=== PATIENT | male | born 1935 | race Caucasian/White ===

== ENCOUNTER 2016-08-28 15:52 | Inpatient (IN) | payer MEDICARE, MEDICAID ==
[~2016-08-28] VITALS: Ht 172.7 cm; Wt 83.9 kg
[~2016-08-28 15:52] MED LIST: ACET650T10 PO; ASPI81TA31 PO; ATOR20TA PO; BENA10TA2 PO; BISA10SU15 RC; DOCU100C22 PO; DONE5TAB34 PO; FINA5TAB11 PO; GABA-532 PO; LORA10TA50 PO; MAGN400O4 PO; MECL12.582 PO; METO-302 PO; MOME17SP NS; MONT10TA22 PO; OXYB5TAB11 PO; POLY510P31 PO; RANI150C4 PO; RASA0.5T PO; SENN8.6T6 PO; SIME80TA15 PO; TRAM50TA2 PO
[2016-08-28] MEDS ORDERED: NA P133E RC (16:20)
[2016-08-28] MEDS ORDERED: LIDO700A TP (16:20)
[2016-08-28] MEDS ORDERED: MELA5TAB PO (16:20)
[2016-08-28] MEDS ORDERED: SIME80TA14 PO (16:20)
[2016-08-28] MEDS ORDERED: ALBU8.5H2 IH (16:20)
[2016-08-28] MEDS ORDERED: TRAM50TA2 PO (16:20)
[2016-08-28] MEDS ORDERED: IBUP-66 PO (16:20)
[2016-08-28 16:24] LABS: BASOPHILS # (AUTO) 0.1 K/uL (0.0-0.2); BASOPHILS % (AUTO) 1.4 % (0.0-2.0); EOSINOPHILS # (AUTO) 0.2 K/uL (0.0-0.7); EOSINOPHILS % (AUTO) 2.5 % (0.0-7.0); HEMATOCRIT 46.2 % (40.0-50.0); HEMOGLOBIN 14.9 g/dL (14.0-18.0); LYMPHOCYTES # (AUTO) 0.9 K/uL (0.8-4.8); MEAN CORPUSCULAR HEMOGLOBIN 25.6 uug (27.0-31.0); MEAN CORPUSCULAR HGB CONC 32 g/dL (32.0-37.0); MEAN CORPUSCULAR VOLUME 79.5 fL (82.0-92.0); MONOCYTES # (AUTO) 0.3 K/uL (0.1-1.30); MONOCYTES % (AUTO) 3.1 % (0.0-11.0); NEUTROPHILS # (AUTO) 7.7 K/uL (1.8-8.9); PLATELET COUNT (AUTO) 211 K/uL (150-450); RED BLOOD CELL COUNT(AUTO) 5.81 MIL/uL (4.70-6.10); RED CELL DISTRIBUTION WIDTH 13.4 % (11.5-14.5); WHITE BLOOD COUNT (AUTO) 9.2 K/uL (4.0-11.2)
[2016-08-28 16:44] LABS: CARBON DIOXIDE 30 mmol/L (21-32); CHLORIDE 99 mmol/L (98-107); CREATININE 1.4 mg/dL (0.6-1.3); GLUCOSE 155 mg/dL (74-106); POTASSIUM 4.8 mmol/L (3.5-5.1); SODIUM SERUM 135 mmol/L (136-145); UREA NITROGEN, BLOOD 26 mg/dL (7-18)
[2016-08-28 16:46] LABS: AMMONIA 15 umol/L (11-32)
[2016-08-28 16:51] LABS: TROPONIN I < 0.017 ng/mL (0.00-0.056)
[2016-08-28 16:52] LABS: LACTIC ACID 1.4 mmol/L (0.4-2.0)
[2016-08-28 17:03] LABS: *BILIRUBIN,URIN NEGATIVE (NEGATIVE); *BLOOD, URINE NEGATIVE (NEGATIVE); *CLARITY,URINE CLEAR (CLEAR); *COLOR,URINE YELLOW (YELLOW); *KETONES,URINE NEGATIVE (NEGATIVE); *PROTEIN,URINE NEGATIVE (NEGATIVE); *UROBILINOGEN,URINE 0.2 E.U./dl (NORMAL); LEUKOCYTE ESTERASE ,URINE NEGATIVE (NEGATIVE); NITRITE, URINE NEGATIVE (NEGATIVE); UGLUCOSE NEGATIVE (NEGATIVE)
[2016-08-28 17:03] LABS: ALANINE AMINOTRANSFERASE 25 U/L (16-63); ALBUMIN 3.8 g/dL (3.4-5.0); ALKALINE PHOSPHATASE 80 U/L (50-136); ASPARTATE AMINOTRANSFERASE 12 U/L (15-37); BILIRUBIN,DIRECT 0.1 mg/dL (0.0-0.2); BILIRUBIN,TOTAL 0.3 mg/dL (0.2-1.0); TOTAL PROTEIN, SERUM 7.2 g/dL (6.4-8.2)
[2016-08-28 17:04] LABS: *AMPHETAMINE, URINE NEGATIVE (NEGATIVE); *BARBITURATE, URINE NEGATIVE (NEGATIVE); *CANNABINOID, URINE NEGATIVE (NEGATIVE); *COCCAINE, URINE NEGATIVE (NEGATIVE); *OPIATE, URINE NEGATIVE (NEGATIVE); *PHENCYCLIDINE SCREEN,URINE NEGATIVE (NEGATIVE)
[2016-08-28 17:06] LABS: ACETAMINOPHEN < 2.0 ug/mL (10-30)
[2016-08-28 17:18] LABS: ETHANOL < 3 MG/DL (0-0)
[2016-08-28 17:18] LABS: BACTERIA,URINE NONE SEEN /HPF (NONE SEEN); RBC,URINE 0-3 /HPF (0-3); SQUAMOUS EPITHELIAL CELL,UR NONE SEEN /HPF (NONE SEEN); WBC,URINE 0-3 /HPF (0-3)
[2016-08-28 17:30] VITALS: BP 142/77
[2016-08-28 17:30] LABS: THYROID STIMULATING HORMONE 0.791 mIU/mL (0.358-3.740)
[2016-08-28] MEDS ORDERED: ACETAMINOPHEN 325 MG TABLET PO PRN (17:30)
[2016-08-28] MEDS ORDERED: MAGNESIUM HYDROXIDE 30 ML LIQUID UDC PO PRN (17:30)
[2016-08-28] MEDS ORDERED: LORAZEPAM 0.5 MG TABLET PO PRN (17:45)
[2016-08-28] MEDS ORDERED: TEMAZEPAM 7.5 MG CAPSULE PO PRN (17:45)
[2016-08-28] MEDS ORDERED: ALBUTEROL SULFATE 8 GM HFA.AER.AD IH PRN (18:45)
[2016-08-28] MEDS ORDERED: TRAMADOL HCL 50 MG TABLET PO PRN (18:45)
[2016-08-28] MEDS ORDERED: FLEET ENEMA 133 ML BOTTLE RC PRN (18:45)
[2016-08-28] MEDS ORDERED: MOMETASONE FUROATE NASAL 17 GM SPRAY.PUMP NS PRN (18:45)
[2016-08-28] MEDS ORDERED: LIDOCAINE 5% PATCH TD PRN (18:45)
[2016-08-28] MEDS ORDERED: IBUPROFEN 200 MG TABLET PO PRN (18:45)
[2016-08-28] MEDS ORDERED: SIMETHICONE 80 MG TAB.CHEW PO PRN (18:45)
[2016-08-28] MEDS ORDERED: BISACODYL 10 MG SUPP.RECT RC PRN (18:45)
[2016-08-28] MEDS ORDERED: OLANZAPINE 10 MG VIAL IM ONE (19:00)
[2016-08-28] MEDS ORDERED: LORAZEPAM 2 MG/1 ML VIAL IM ONE ×2 (19:15)
[2016-08-28] MEDS ORDERED: HALOPERIDOL LACTATE 5 MG/1 ML VIAL IM ONE (19:15)
[2016-08-28] MEDS ORDERED: BENZTROPINE MESYLATE 2 MG/2 ML AMPUL IM ONE (19:15)
[2016-08-28] MEDS ORDERED: ALBUTEROL SULFATE 2.5 MG/3 ML NEBU NEB PRN (19:30)
[2016-08-28] MEDS: LORATADINE 10 MG TABLET PO SCH (20:00)
[2016-08-28] MEDS: GABAPENTIN 100 MG CAPSULE PO SCH (21:00)
[2016-08-28] MEDS: ATORVASTATIN 20 MG TABLET PO SCH (21:00)
[2016-08-28 21:31] VITALS: BP 128/57
[2016-08-29 07:30] VITALS: BP 152/69
[2016-08-29] MEDS ORDERED: RASAGILINE MESYLATE 0.5 MG PO SCH (09:00)
[2016-08-29] MEDS: FINASTERIDE 5 MG TABLET PO SCH (09:28)
[2016-08-29] MEDS: ASPIRIN 81 MG TAB.CHEW PO SCH (09:28)
[2016-08-29] MEDS: FAMOTIDINE 20 MG TABLET PO SCH (09:29)
[2016-08-29] MEDS: METOPROLOL SUCCINATE XL 25 MG TAB.SR.24H PO SCH (09:29)
[2016-08-29] MEDS: OXYBUTYNIN CHLORIDE 5 MG TABLET PO SCH (09:29)
[2016-08-29] MEDS: BENAZEPRIL HCL 10 MG TABLET PO SCH (09:30)
[2016-08-29 16:48] VITALS: BP 120/73
[2016-08-29] MEDS ORDERED: DIVALPROEX 125 MG TABLET.DR PO SCH (17:30)
[2016-08-29] MEDS: DIVALPROEX 125 MG TABLET.DR PO SCH (17:48)
[2016-08-29] MEDS ORDERED: PNEUMOCOCCAL 23-VAL P-SAC VAC 0.5 ML VIAL IM ONE (18:30)
[2016-08-29] MEDS: MAG HYDROX/AL HYDROX/SIMETH 30 ML LIQUID UDC PO PRN (19:23)
[2016-08-29] MEDS: ATORVASTATIN 20 MG TABLET PO SCH (20:04)
[2016-08-29] MEDS: LORATADINE 10 MG TABLET PO SCH (20:04)
[2016-08-29] MEDS: QUETIAPINE FUMARATE 25 MG TABLET PO SCH (20:04)
[2016-08-29] MEDS: GABAPENTIN 100 MG CAPSULE PO SCH (20:04)
[2016-08-29 20:13] VITALS: BP 134/71
[2016-08-29] MEDS: RASAGILINE 0.5 MG PO SCH (20:54)
[2016-08-30 07:30] VITALS: BP 141/63
[2016-08-30] MEDS: OXYBUTYNIN CHLORIDE 5 MG TABLET PO SCH (08:09)
[2016-08-30] MEDS: ASPIRIN 81 MG TAB.CHEW PO SCH (08:09)
[2016-08-30] MEDS: BENAZEPRIL HCL 10 MG TABLET PO SCH (08:09)
[2016-08-30] MEDS: FINASTERIDE 5 MG TABLET PO SCH (08:09)
[2016-08-30] MEDS: FAMOTIDINE 20 MG TABLET PO SCH (08:09)
[2016-08-30] MEDS: DIVALPROEX 125 MG TABLET.DR PO SCH ×2 (08:09→17:01)
[2016-08-30] MEDS: METOPROLOL SUCCINATE XL 25 MG TAB.SR.24H PO SCH (08:09)
[2016-08-30] MEDS: RASAGILINE 0.5 MG PO SCH ×2 (08:10→17:01)
[2016-08-30 16:21] VITALS: BP 142/65
[2016-08-30 20:00] VITALS: BP 108/50
[2016-08-30] MEDS: ATORVASTATIN 20 MG TABLET PO SCH (20:39)
[2016-08-30] MEDS: GABAPENTIN 100 MG CAPSULE PO SCH (20:39)
[2016-08-30] MEDS: LORATADINE 10 MG TABLET PO SCH (20:40)
[2016-08-30] MEDS: QUETIAPINE FUMARATE 25 MG TABLET PO SCH (20:40)
[2016-08-31 06:59] LABS: ALBUMIN 3.6 g/dL (3.4-5.0); BILIRUBIN,TOTAL 0.7 mg/dL (0.2-1.0); CALCIUM 9.3 mg/dL (8.5-10.1); CREATININE 1.4 mg/dL (0.6-1.3); MAGNESIUM 2.2 mg/dL (1.8-2.4); PHOSPHOROUS 3.4 mg/dL (2.5-4.9); POTASSIUM 4.8 mmol/L (3.5-5.1); TOTAL PROTEIN, SERUM 7.4 g/dL (6.4-8.2)
[2016-08-31 07:14] LABS: BASOPHILS % (AUTO) 0.2 % (0.0-2.0); EOSINOPHILS # (AUTO) 0.3 K/uL (0.0-0.7); HEMATOCRIT 45.7 % (40.0-50.0); HEMOGLOBIN 15.1 g/dL (14.0-18.0); LYMPHOCYTES # (AUTO) 1.1 K/uL (0.8-4.8); MEAN CORPUSCULAR HEMOGLOBIN 26.2 uug (27.0-31.0); MEAN CORPUSCULAR HGB CONC 33 g/dL (32.0-37.0); MEAN CORPUSCULAR VOLUME 79.2 fL (82.0-92.0); MONOCYTES # (AUTO) 0.4 K/uL (0.1-1.30); MONOCYTES % (AUTO) 3.4 % (0.0-11.0); NEUTROPHILS # (AUTO) 8.5 K/uL (1.8-8.9); NEUTROPHILS % (AUTO) 82.4 % (38.5-71.5); PLATELET COUNT (AUTO) 191 K/uL (150-450); RED BLOOD CELL COUNT(AUTO) 5.78 MIL/uL (4.70-6.10); RED CELL DISTRIBUTION WIDTH 13.8 % (11.5-14.5); WHITE BLOOD COUNT (AUTO) 10.3 K/uL (4.0-11.2)
[2016-08-31 07:30] VITALS: BP 133/70
[2016-08-31] MEDS: ASPIRIN 81 MG TAB.CHEW PO SCH (08:06)
[2016-08-31] MEDS: FINASTERIDE 5 MG TABLET PO SCH (08:06)
[2016-08-31] MEDS: DIVALPROEX 125 MG TABLET.DR PO SCH ×2 (08:06→17:10)
[2016-08-31] MEDS: FAMOTIDINE 20 MG TABLET PO SCH (08:06)
[2016-08-31] MEDS: METOPROLOL SUCCINATE XL 25 MG TAB.SR.24H PO SCH (08:07)
[2016-08-31] MEDS: OXYBUTYNIN CHLORIDE 5 MG TABLET PO SCH (08:07)
[2016-08-31] MEDS: BENAZEPRIL HCL 10 MG TABLET PO SCH (08:07)
[2016-08-31] MEDS: RASAGILINE 0.5 MG PO SCH ×2 (08:09→17:10)
[2016-08-31 14:11] LABS: *BILIRUBIN,URIN NEGATIVE (NEGATIVE); *BLOOD, URINE NEGATIVE (NEGATIVE); *CLARITY,URINE CLEAR (CLEAR); *COLOR,URINE YELLOW (YELLOW); *KETONES,URINE NEGATIVE (NEGATIVE); *PROTEIN,URINE NEGATIVE (NEGATIVE); *UROBILINOGEN,URINE 0.2 E.U./dl (NORMAL); LEUKOCYTE ESTERASE ,URINE NEGATIVE (NEGATIVE); NITRITE, URINE NEGATIVE (NEGATIVE); PH,URINE 5.5 (5.0-8.0); UGLUCOSE NEGATIVE (NEGATIVE)
[2016-08-31 14:20] LABS: BACTERIA,URINE NONE SEEN /HPF (NONE SEEN); RBC,URINE 0-3 /HPF (0-3); SQUAMOUS EPITHELIAL CELL,UR FEW /HPF (NONE SEEN); WBC,URINE 0-3 /HPF (0-3)
[2016-08-31 14:29] LABS: *URINE TOTAL PROTEIN RANDOM 12.9 mg/dL (<150/24HR)
[2016-08-31 16:00] VITALS: BP 108/57
[2016-08-31] MEDS: MAG HYDROX/AL HYDROX/SIMETH 30 ML LIQUID UDC PO PRN (18:44)
[2016-08-31 19:57] VITALS: BP 141/67
[2016-08-31] MEDS: LORATADINE 10 MG TABLET PO SCH (20:07)
[2016-08-31] MEDS: ATORVASTATIN 20 MG TABLET PO SCH (20:07)
[2016-08-31] MEDS: QUETIAPINE FUMARATE 25 MG TABLET PO SCH (20:07)
[2016-08-31] MEDS: GABAPENTIN 100 MG CAPSULE PO SCH (20:08)
[2016-09-01 07:30] VITALS: BP 134/70
[2016-09-01] MEDS: METOPROLOL SUCCINATE XL 25 MG TAB.SR.24H PO SCH (08:40)
[2016-09-01] MEDS: FINASTERIDE 5 MG TABLET PO SCH (08:40)
[2016-09-01] MEDS: DIVALPROEX 125 MG TABLET.DR PO SCH ×2 (08:41→17:44)
[2016-09-01] MEDS: ASPIRIN 81 MG TAB.CHEW PO SCH (08:41)
[2016-09-01] MEDS: OXYBUTYNIN CHLORIDE 5 MG TABLET PO SCH (08:41)
[2016-09-01] MEDS: FAMOTIDINE 20 MG TABLET PO SCH (08:41)
[2016-09-01] MEDS: BENAZEPRIL HCL 10 MG TABLET PO SCH (08:41)
[2016-09-01] MEDS: RASAGILINE 0.5 MG PO SCH ×2 (10:43→17:45)
[2016-09-01 15:17] VITALS: BP 143/69
[2016-09-01] MEDS: MAG HYDROX/AL HYDROX/SIMETH 30 ML LIQUID UDC PO PRN (18:27)
[2016-09-01] MEDS: QUETIAPINE FUMARATE 25 MG TABLET PO SCH (20:56)
[2016-09-01] MEDS: ATORVASTATIN 20 MG TABLET PO SCH (20:56)
[2016-09-01] MEDS: GABAPENTIN 100 MG CAPSULE PO SCH (20:56)
[2016-09-01] MEDS: LORATADINE 10 MG TABLET PO SCH (21:03)
[2016-09-01 22:26] VITALS: BP 132/75
[2016-09-02 03:13] LABS: *CREATININE,URINE 49.1 mg/dL (30-125); *SODIUM RNDM,URINE 32 mmol/L (40-220)
[2016-09-02 03:14] LABS: *URINE TOTAL PROTEIN RANDOM < 6.0 mg/dL (<150/24HR)
[2016-09-02 03:15] LABS: *BILIRUBIN,URIN NEGATIVE (NEGATIVE); *BLOOD, URINE NEGATIVE (NEGATIVE); *CLARITY,URINE CLEAR (CLEAR); *COLOR,URINE YELLOW (YELLOW); *KETONES,URINE NEGATIVE (NEGATIVE); *PROTEIN,URINE NEGATIVE (NEGATIVE); *UROBILINOGEN,URINE 0.2 E.U./dl (NORMAL); LEUKOCYTE ESTERASE ,URINE NEGATIVE (NEGATIVE); NITRITE, URINE NEGATIVE (NEGATIVE); UGLUCOSE NEGATIVE (NEGATIVE)
[2016-09-02 03:25] LABS: BACTERIA,URINE NONE SEEN /HPF (NONE SEEN); RBC,URINE 0-3 /HPF (0-3); SQUAMOUS EPITHELIAL CELL,UR NONE SEEN /HPF (NONE SEEN); WBC,URINE 0-3 /HPF (0-3)
[2016-09-02 07:30] VITALS: BP 151/80
[2016-09-02] MEDS: DIVALPROEX 125 MG TABLET.DR PO SCH ×2 (08:26→17:20)
[2016-09-02] MEDS: BENAZEPRIL HCL 10 MG TABLET PO SCH (08:27)
[2016-09-02] MEDS: OXYBUTYNIN CHLORIDE 5 MG TABLET PO SCH (08:28)
[2016-09-02] MEDS: ASPIRIN 81 MG TAB.CHEW PO SCH (08:28)
[2016-09-02] MEDS: FAMOTIDINE 20 MG TABLET PO SCH (08:28)
[2016-09-02] MEDS: METOPROLOL SUCCINATE XL 25 MG TAB.SR.24H PO SCH (08:28)
[2016-09-02] MEDS: FINASTERIDE 5 MG TABLET PO SCH (08:28)
[2016-09-02] MEDS: RASAGILINE 0.5 MG PO SCH ×2 (08:36→17:19)
[2016-09-02 15:56] VITALS: BP 142/66
[2016-09-02 20:00] VITALS: BP 135/68
[2016-09-02] MEDS: ATORVASTATIN 20 MG TABLET PO SCH (20:08)
[2016-09-02] MEDS: QUETIAPINE FUMARATE 25 MG TABLET PO SCH (20:09)
[2016-09-02] MEDS: LORATADINE 10 MG TABLET PO SCH (20:09)
[2016-09-02] MEDS: GABAPENTIN 100 MG CAPSULE PO SCH (20:09)
[2016-09-03 07:30] VITALS: BP 141/73
[2016-09-03] MEDS: FINASTERIDE 5 MG TABLET PO SCH (08:46)
[2016-09-03] MEDS: FAMOTIDINE 20 MG TABLET PO SCH (08:46)
[2016-09-03] MEDS: BENAZEPRIL HCL 10 MG TABLET PO SCH (08:46)
[2016-09-03] MEDS: DIVALPROEX 125 MG TABLET.DR PO SCH ×2 (08:46→17:12)
[2016-09-03] MEDS: OXYBUTYNIN CHLORIDE 5 MG TABLET PO SCH (08:46)
[2016-09-03] MEDS: ASPIRIN 81 MG TAB.CHEW PO SCH (08:46)
[2016-09-03] MEDS: METOPROLOL SUCCINATE XL 25 MG TAB.SR.24H PO SCH (08:47)
[2016-09-03] MEDS: RASAGILINE 0.5 MG PO SCH ×2 (08:49→17:12)
[2016-09-03 15:45] VITALS: BP 125/59
[2016-09-03] MEDS: MAG HYDROX/AL HYDROX/SIMETH 30 ML LIQUID UDC PO PRN (18:36)
[2016-09-03] MEDS: GABAPENTIN 100 MG CAPSULE PO SCH (20:15)
[2016-09-03] MEDS: LORATADINE 10 MG TABLET PO SCH (20:16)
[2016-09-03] MEDS: ATORVASTATIN 20 MG TABLET PO SCH (20:16)
[2016-09-03] MEDS: QUETIAPINE FUMARATE 25 MG TABLET PO SCH (20:16)
[2016-09-03 21:00] VITALS: BP 135/60
[2016-09-04 07:05] LABS: CALCIUM 9.5 mg/dL (8.5-10.1); MAGNESIUM 2.2 mg/dL (1.8-2.4); PHOSPHOROUS 3.2 mg/dL (2.5-4.9); POTASSIUM 5.1 mmol/L (3.5-5.1)
[2016-09-04 07:06] LABS: CREATININE 1.4 mg/dL (0.6-1.3)
[2016-09-04 07:28] LABS: BASOPHILS % (AUTO) 0.3 % (0.0-2.0); EOSINOPHILS # (AUTO) 0.5 K/uL (0.0-0.7); EOSINOPHILS % (AUTO) 7.2 % (0.0-7.0); HEMATOCRIT 45.5 % (36.7-47.1); HEMOGLOBIN 14.7 g/dL (12.5-16.3); LYMPHOCYTES # (AUTO) 1.3 K/uL (40.0-85.0); LYMPHOCYTES % (AUTO) 19.2 % (20.5-51.5); MEAN CORPUSCULAR HEMOGLOBIN 25.5 uug (23.8-33.4); MEAN CORPUSCULAR HGB CONC 32 g/dL (32.5-36.3); MEAN CORPUSCULAR VOLUME 79.3 fL (73.0-96.2); MONOCYTES # (AUTO) 0.3 K/uL (2.0-10.0); MONOCYTES % (AUTO) 5.1 % (0.0-11.0); NEUTROPHILS # (AUTO) 4.7 K/uL (1.8-8.9); NEUTROPHILS % (AUTO) 68.2 % (38.5-71.5); PLATELET COUNT (AUTO) 230 K/uL (152-348); RED BLOOD CELL COUNT(AUTO) 5.74 MIL/uL (4.06-5.63); RED CELL DISTRIBUTION WIDTH 13.3 % (12.1-16.2)
[2016-09-04 07:30] VITALS: BP 137/77
[2016-09-04 07:39] LABS: WHITE BLOOD COUNT (AUTO) 6.8 K/uL (3.6-10.2)
[2016-09-04] MEDS: FINASTERIDE 5 MG TABLET PO SCH (08:34)
[2016-09-04] MEDS: METOPROLOL SUCCINATE XL 25 MG TAB.SR.24H PO SCH (08:34)
[2016-09-04] MEDS: FAMOTIDINE 20 MG TABLET PO SCH (08:34)
[2016-09-04] MEDS: OXYBUTYNIN CHLORIDE 5 MG TABLET PO SCH (08:34)
[2016-09-04] MEDS: DIVALPROEX 125 MG TABLET.DR PO SCH (08:34)
[2016-09-04] MEDS: ASPIRIN 81 MG TAB.CHEW PO SCH (08:34)
[2016-09-04] MEDS: BENAZEPRIL HCL 10 MG TABLET PO SCH (08:35)
[2016-09-04] MEDS: RASAGILINE 0.5 MG PO SCH (09:07)
[2016-09-04 15:39] VITALS: BP 127/62
[2016-09-05 08:06] LABS: VIT D, 25-HYDROXY 13.6 ng/mL (30.0-100.0)
[2016-09-06 11:15] LABS: CALCITRIOL VIT D,1,25 DIHYDROX 21.5 pg/mL (19.9-79.3)
== END 2016-09-04 16:00 | DRG 885 ==
LOC: ER 15:55 → GPS 17:20
PROVIDERS: ADMIT Psychiatry & Neurology Psychosomatic Medicine; ATTEND Internal Medicine
DX: F29 Unspecified psychosis not due to a substance or known physiological condition (principal); F01.50 Vascular dementia, unspecified severity, without behavioral disturbance, psychotic disturbance, mood disturbance, and anxiety; N17.9 Acute kidney failure, unspecified; Z73.6 Limitation of activities due to disability; F02.80 Dementia in other diseases classified elsewhere, unspecified severity, without behavioral disturbance, psychotic disturbance, mood disturbance, and anxiety; F39 Unspecified mood [affective] disorder; K44.9 Diaphragmatic hernia without obstruction or gangrene; E78.5 Hyperlipidemia, unspecified; G20 Parkinson's disease; K59.09 Other constipation; K21.9 Gastro-esophageal reflux disease without esophagitis; N40.0 Benign prostatic hyperplasia without lower urinary tract symptoms; E11.9 Type 2 diabetes mellitus without complications
CPT/HCPCS: 36415; 70030-TC; 70450; 71010; 76770; 80307; 82306; 82652; 83605; 83735; 83970; 84100; 84156; 84300; 84443; 85025; 85730; 87040; 87086; 90732; 93005; 97001; A4663; G0480-TC; G6040-TC; J0515; J1630; J2060; J2358; J3535